=== PATIENT | male | born 1990 | race Two or more races ===

== ENCOUNTER 2023-09-07 16:15 | Emergency (ER) | payer OTHER ==
[~2023-09-07] VITALS: Ht 177.8 cm; Wt 65.8 kg
== END 2023-09-07 18:48 | disposition home or self-care (01) ==
LOC: ER 16:16
DX: S62.616A Displaced fracture of proximal phalanx of right little finger, initial encounter for closed fracture (principal); Y08.89XA Assault by other specified means, initial encounter; Y93.89 Activity, other specified; Y92.89 Other specified places as the place of occurrence of the external cause; Y99.9 Unspecified external cause status